=== PATIENT | female | born 1990 | race Caucasian/White ===

== ENCOUNTER 2020-11-07 11:39 | Emergency (ER) | payer OTHER ==
[~2020-11-07] VITALS: Ht 157.5 cm; Wt 75.9 kg
--- NOTE | 2020-11-07 11:57 | NUR ---
ASSUMED CARE OF PT. SHE REPORTS IT HAS BEEN 3 MONTHS SINCE LMP AND WANTS TO CONFIRM HER AND POSSIBLY GET AN US.
--- NOTE | 2020-11-07 12:04 | NUR ---
PT VSS. RESP REGULAR/UNLABORED. NADN. PT IS SITTING IN BED, BEDRAIL UPX1. PT HAS ALREADY PROVIDED URINE SAMPLE. CALL LIGHT WITHIN REACH.
--- NOTE | 2020-11-07 12:26 | NUR ---
URINE SAMPLE SENT TO LAB. REG/UNLABORED RESP, NADN. CALL LIGHT WITHIN REACH.
[2020-11-07 12:56] LABS: MICROSCOPIC INDICATED
[2020-11-07 13:52] VITALS: BP 120/81
--- NOTE | 2020-11-07 13:55 | NUR ---
Patient given discharge instructions and they have confirmed that they understand the instructions. Pt instructed to call to schedule follow up with OB and to continue taking vitamin. Patient ambulatory with steady gait.
== END 2020-11-07 14:04 | disposition home or self-care (01) ==
LOC: ED 13:45
DX: O26.891 Other specified pregnancy related conditions, first trimester (principal); Z3A.10 10 weeks gestation of pregnancy
CPT/HCPCS: 76815; 81001; 87086; 99284

== ENCOUNTER 2021-02-25 02:15 | Observation (INO) | payer OTHER ==
[~2021-02-25] VITALS: Ht 160 cm; Wt 77.2 kg
[2021-02-25] MEDS ORDERED: morphine SULFATE 10 MG/ML, 1ML ONE (02:24)
[2021-02-25] MEDS ORDERED: ONDANSETRON 2MG/ML, 2ML ONE (02:24)
[2021-02-25] MEDS ORDERED: ONDANSETRON 2MG/ML, 2ML IVPush ONE (02:30)
[2021-02-25] MEDS ORDERED: morphine SULFATE 10 MG/ML, 1ML IVPush ONE (02:30)
[2021-02-25 02:40] LABS: BASOPHILS % (AUTO) 0 % (0-1); EOSINOPHILS % (AUTO) 0 % (1-7); LYMPHOCYTES % (AUTO) 10 % (22-44); MEAN CORPUSCULAR HEMOGLOBIN 30.8 pg (27.0-34.8); MEAN CORPUSCULAR HGB CONC 34.2 g/dL (32.4-35.8); MEAN PLATELET VOLUME 7.4 fL (7.4-10.4); MONOCYTES % (AUTO) 7 % (2-9); NEUTROPHILS % (AUTO) 82 % (42-75); PLATELET COUNT 248 x10^3/uL (130-400); RED BLOOD COUNT 4.07 x10^6/uL (3.82-5.3); RED CELL DISTRIBUTION WIDTH 14.3 % (9.6-15.2)
[2021-02-25 02:50] LABS: ALANINE AMINOTRANSFERASE 35 U/L (12-78); ANION GAP 10 mmol/L (5-15); CALCIUM 9.3 mg/dL (8.5-10.1); CHLORIDE 107 mmol/L (98-107); CREATININE 0.43 mg/dL (0.55-1.02)
[2021-02-25 02:52] LABS: ALKALINE PHOSPHATASE 152 U/L (45-117); BILIRUBIN,TOTAL 0.3 mg/dL (0.2-1.0); TOTAL PROTEIN 7.9 g/dL (6.4-8.2)
[2021-02-25] MEDS: LACTATED RINGERS 1,000 ML IV SCH ×2 (03:06→05:33)
[2021-02-25] MEDS: morphine SULFATE 10 MG/ML, 1ML IVPush PRN ×3 (03:11→05:30)
[2021-02-25] MEDS ORDERED: ONDANSETRON 2MG/ML, 2ML IVPush PRN (03:30)
[2021-02-25] MEDS ORDERED: FAMOTIDINE 20 MG/2 ML IVPush ONE (04:00)
[2021-02-25 04:42] LABS: AMPHETAMINE SCREEN, URINE Negative (Negative); BARBITURATE SCREEN, URINE Negative (Negative); BENZODIAZEPINE SCREEN, URINE Negative (Negative); CANNABINOID SCREEN, URINE Negative (Negative); COCAINE SCREEN, URINE Negative (Negative); METHADONE SCREEN, URINE Negative (Negative); OPIATE SCREEN, URINE Positive (Negative)
[2021-02-25 04:53] LABS: MICROSCOPIC INDICATED
[2021-02-25 06:42] LABS: RAPID INFLUENZA A Negative (Negative); RAPID INFLUENZA B Negative (Negative)
[2021-02-25] MEDS ORDERED: PROMETHAZINE 25 MG/ML, 1ML IM ONE (07:30)
[2021-02-25] MEDS ORDERED: D5%-LACTATED RINGERS 1,000 ML IV SCH (10:00)
== END 2021-02-25 13:41 | disposition home or self-care (01) ==
LOC: LDOP 02:15 → LDIP 05:40
PROVIDERS: ADMIT Obstetrics & Gynecology; ATTEND Obstetrics & Gynecology
DX: O26.892 Other specified pregnancy related conditions, second trimester (principal); Z20.822 Contact with and (suspected) exposure to COVID-19; R10.9 Unspecified abdominal pain; R05 Cough; R11.0 Nausea; Z3A.26 26 weeks gestation of pregnancy; Z79.899 Other long term (current) drug therapy
CPT/HCPCS: 36415; 76700; 76815; 80053; 80307; 81001; 82150; 83690; 85025; 87086; 87400; 87635; 96361; 96372; 96374; 96375; 96376; 99211; G0378; G0379; J2270; J2405; J2550; J7120; J7121; 96360; G0463